=== PATIENT | female | born 1970 | race Two or more races ===

== ENCOUNTER 2023-10-23 17:07 | Emergency (ER) | payer MEDICAID, MEDICARE, OTHER ==
[~2023-10-23] VITALS: Ht 167.6 cm; Wt 77.6 kg
[2023-10-23] MEDS ORDERED: IV NS 0.9% 1,000 ML BAG IV ONE (17:30)
[2023-10-23 18:29] LABS: BASOPHILS % (AUTO) 0.5 % (0.0-2.0); EOSINOPHILS % (AUTO) 0.6 % (0.0-6.0); HEMATOCRIT 39 % (33-45); HEMOGLOBIN 13.2 g/dL (11.5-14.8); LYMPHOCYTES # (AUTO) 1.4 K/uL (0.8-4.8); LYMPHOCYTES % (AUTO) 25.1 % (20.0-44.0); MEAN CORPUSCULAR HEMOGLOBIN 30 PG (26.0-33.0); MEAN CORPUSCULAR HGB CONC 34 g/dl (31.0-36.0); MEAN CORPUSCULAR VOLUME 88 fL (82-100); MONOCYTES # (AUTO) 0.4 K/uL (0.1-1.30); MONOCYTES % (AUTO) 6.8 % (2.0-12.0); NEUTROPHILS # (AUTO) 3.7 K/uL (1.8-8.9); PLATELET COUNT (AUTO) 222 K/uL (150-450); RED BLOOD CELL COUNT(AUTO) 4.43 MIL/uL (4.0-5.2); RED CELL DISTRIBUTION WIDTH 12.4 % (11.5-15.0); WHITE BLOOD COUNT (AUTO) 5.6 K/uL (4.3-11.0)
[2023-10-23 18:59] LABS: CALCIUM, SERUM 9.2 mg/dL (8.5-10.1); CREATININE 0.7 mg/dL (0.6-1.3); POTASSIUM 3.7 mmol/L (3.5-5.1)
[2023-10-23 19:06] LABS: ALBUMIN 3.5 g/dL (3.4-5.0); BILIRUBIN,DIRECT 0.1 mg/dL (0.0-0.2); BILIRUBIN,TOTAL 0.3 mg/dL (0.2-1.0)
[2023-10-23] MEDS ORDERED: CIPR-262 PO (19:12)
[2023-10-23] MEDS ORDERED: METR500T PO (19:12)
[2023-10-23 19:18] VITALS: TEMP 98.5
[2023-10-23] MEDS ORDERED: CIPROFLOXACIN HCL 500 MG TABLET PO ONE (19:30)
[2023-10-23] MEDS ORDERED: METRONIDAZOLE 500 MG TABLET PO ONE (19:30)
[2023-10-23] MEDS ORDERED: CIPROFLOXACIN HCL 500 MG TABLET ONE (19:40)
[2023-10-23] MEDS ORDERED: METRONIDAZOLE 500 MG TABLET ONE (19:41)
[2023-10-23 20:20] VITALS: BP 133/88; O2SAT 100
[2023-10-24] MEDS ORDERED: METR500T PO (11:41)
[2023-10-24] MEDS ORDERED: CIPR-262 PO (11:41)
== END 2023-10-23 20:21 | disposition home or self-care (01) ==
LOC: ER 17:09
DX: K57.32 Diverticulitis of large intestine without perforation or abscess without bleeding (principal); R10.84 Generalized abdominal pain; Z88.8 Allergy status to other drugs, medicaments and biological substances; Z60.2 Problems related to living alone
CPT/HCPCS: 99284; 74176; 96360; 85025; 80048; 83690; 80076; 36415; J7030